=== PATIENT | female | born 1955 | race Caucasian/White ===

== ENCOUNTER → 2017-03-01 | Outpatient (CLI) | payer OTHER | LOC: FIMAGING 14:36 | PROVIDERS: ATTEND Internal Medicine | DX: Z13.820 Encounter for screening for osteoporosis (principal); M85.80 Other specified disorders of bone density and structure, unspecified site ==

== ENCOUNTER 2017-12-13 13:45 | Emergency (ER) | payer OTHER ==
[2017-12-13 13:59] VITALS: PULSE 72; TEMP 97.7
--- NOTE | 2017-12-13 14:01 | CPEKG ---
Heart Rate: 65 RR Interval: 923 P-R Interval: 160 QRSD Interval: 88 QT Interval: 424 QTC Interval: 441 P [place]: 63 QRS [place]: 29 T Wave [place]: 66 EKG Severity - NORMAL ECG - EKG Impression: SINUS RHYTHM Electronically Signed By: Harman Funk 13-Dec-2017 14:09:01
[2017-12-13 14:16] LABS: PLATELET COUNT 233 10^3/uL (150-400)
--- NOTE | 2017-12-13 14:26 | EDPHY ---
H & P Time Seen by Provider: 12/13/17 14:10 HPI/ROS: Chief complaint. Left arm tingling HPI. 62-year-old female presents with tingling in altered sensation to the left arm that she noticed began at about 11:00 a.m. today. She arrives by EMS. She was checking her e-mail and noticed that she had altered sensation in the left hand and fingers. There was no weakness. She could hold onto her phone without difficulty. She was up at [facility]. She had been skiing but decided she did likely conditions and quit. There was no injury. She was slightly lightheaded. She does not have a headache. No change in her vision. She noticed some rapid heart rate there was unaware of the rate. She had no chest discomfort or shortness of breath. No abdominal pain she has no left lower extremity symptoms. She did have some left neck pain in the ambulance on the way down. ROS Constitutional. no fever/chills, no weakness Eyes. no problems with vision ENT. no sore throat, no nasal drainage. Left neck pain that has resolved Cardiovascular. no chest pain Respiratory. no shortness of breath, no cough Abdominal. no abdominal pain, no nausea/vomiting, no diarrhea . no problems urinating MS. no calf pain/swelling, no neck/back pain, no joint pain Skin. no rash Lymph. no swollen glands Neuro. Altered sensation to left hand and forearm Past Medical/Surgical History: Migraines, hypothyroid, hypoglycemia, anxiety, hysterectomy Social History: , nonsmoker, no alcohol Smoking Status: Never smoked Physical Exam: General Appearance: Alert well-developed female mild distress vital signs are stable Eyes: Pupils equal and round no pallor or injection. ENT, Mouth: Mucous membranes are moist. Respiratory: There are no retractions, lungs are clear to auscultation. Cardiovascular: Regular rate and rhythm. Gastrointestinal: Abdomen is soft and nontender, no masses, bowel sounds normal. Neurological: Awake and alert, sensory and motor exams grossly normal. Speech is normal. Cranial nerves are normal the. There is no pronator drift. Finger- to-nose is intact bilaterally. Subjective sensation of decreased a sensation in the left hand. [id number] normal. Skin: Warm and dry, no rashes. Musculoskeletal: Neck is supple nontender. Extremities symmetrical, full range of motion. Pulses upper extremities are similar both arms Psychiatric: Patient is oriented X 3, there is no agitation. Constitutional: Initial Vital Signs Temperature (C) 36.5 C 12/13/17 13:57 Heart Rate 72 12/13/17 13:57 Respiratory Rate 16 12/13/17 13:57 Blood Pressure 135/87 H 12/13/17 13:57 O2 Sat (%) 92 12/13/17 13:57 O2 Delivery Mode Room Air Allergies/Adverse Reactions: midazolam [From Versed] Allergy (Verified 12/13/17 13:56) tramadol Allergy (Verified 12/13/17 13:56) Home Medications: Medication Instructions Recorded IMITREX 12/13/17 Levothyroxine 12/13/17 Medical Decision Making - Diagnostics EKG Interpretation: EKG reviewed by me shows normal sinus rhythm without arrhythmia Imaging Results: Imaging Impressions Brain MRI 12/13/17 14:54 Impression: Small focus of susceptibility artifact within the right temporal lobe suspicious for prior microhemorrhage potentially related to trauma. No acute abnormality identified. Specifically, no evidence of acute cortical ischemia. Results called to Dr. Harman Funk at 4:25 PM. Neck MRA 12/13/17 14:55 Impression: MRA of the cervical carotids and vertebrals demonstrate no evidence of flow-limiting stenosis, occlusion, or dissection. Results called to Dr. Funk at 4:40 PM. Measurements of carotid stenosis are based on the residual internal carotid diameter with [place] Symptomatic Carotid Endarterectomy Trial (NASCET) based stenosis levels. Brain MRI reviewed by me shows no evidence of acute CVA. There is remote evidence of a small parenchymal hemorrhage. Reviewed by me and discussed with Dr. Madrid MRA neck shows no evidence of vertebral or carotid artery dissection. Again reviewed by me and discussed with Dr. Madrid Procedures: IV normal saline ED Course/Re-evaluation: Consulted and discussed the case with Dr. Joyner, neurology who recommends MRI head without contrast and then MRA of the neck looking for dissection. Re-evaluation at 5:00 p.m.. Patient is stable. She, her , and I discussed imaging and lab results. We discussed treatment plan including criteria for return and recommendation for daily aspirin. Follow up with Neurology. Patient has a neurologist in [place] Phone consult called to patient's neurologist Dr. Teresa Vazquez--[phone], . Dr. Vazquez called me back and agrees with treatment and will see the patient in the office tomorrow and continue workup Aspirin given in the emergency department Differential Diagnosis: I considered CVA, TIA, intracranial bleeding, migraine, stress anxiety, carotid and vertebral artery dissection - Data Points Laboratory Results: Laboratory Results 12/13/17 14:05 12/13/17 14:05 12/13/17 12/13/17 12/13/17 14:05 14:05 14:05 WBC 6.63 10^3/uL 10^3/uL (3.80-9.50) RBC 4.34 10^6/uL 10^6/uL (4.18-5.33) Hgb 13.4 g/dL g/dL (12.6-16.3) Hct 39.0 % % (38.0-47.0) MCV 89.9 fL fL (81.5-99.8) MCH 30.9 pg pg (27.9-34.1) MCHC 34.4 g/dL g/dL (32.4-36.7) RDW 13.1 % % (11.5-15.2) Plt Count 233 10^3/uL 10^3/uL (150-400) MPV 9.7 fL fL (8.7-11.7) Neut % (Auto) 71.7 % % (39.3-74.2) Lymph % (Auto) 20.8 % % (15.0-45.0) [place] % (Auto) 5.9 % % (4.5-13.0) Eos % (Auto) 0.5 % L % (0.6-7.6) Baso % (Auto) 0.8 % % (0.3-1.7) Nucleat RBC Rel Count 0.0 % % (0.0-0.2) Absolute Neuts (auto) 4.76 10^3/uL 10^3/uL (1.70-6.50) Absolute Lymphs (auto) 1.38 10^3/uL 10^3/uL (1.00-3.00) Absolute Monos (auto) 0.39 10^3/uL 10^3/uL (0.30-0.80) Absolute Eos (auto) 0.03 10^3/uL 10^3/uL (0.03-0.40) Absolute Basos (auto) 0.05 10^3/uL 10^3/uL (0.02-0.10) Absolute Nucleated RBC 0.00 10^3/uL 10^3/uL (0-0.01) Immature Gran % 0.3 % % (0.0-1.1) Immature Gran # 0.02 10^3/uL 10^3/uL (0.00-0.10) PT 13.3 SEC SEC (12.0-15.0) INR 0.99 (0.83-1.16) Sodium 144 mEq/L mEq/L (135-145) Potassium 3.7 mEq/L mEq/L (3.5-5.2) Chloride 105 mEq/L mEq/L (97-110) Carbon Dioxide 27 mEq/l mEq/l (22-31) Anion Gap 12 mEq/L mEq/L (8-16) BUN 19 mg/dL mg/dL (7-23) Creatinine 1.0 mg/dL mg/dL (0.6-1.0) Estimated GFR 56 Glucose 90 mg/dL mg/dL (70-100) Calcium 9.8 mg/dL mg/dL (8.5-10.4) Troponin I < 0.012 ng/mL ng/mL (0.000-0.034) Medications Given: Discontinued Medications Sodium Chloride (Ns) 1,000 mls @ 0 mls/hr IV ONCE ONE; Wide Open PRN Reason: Protocol Stop: 12/13/17 14:55 Last Admin: 12/13/17 15:30 Dose: Not Given Departure - Departure Disposition: Home, Routine, Self-Care Clinical Impression: Paresthesia Condition: Good Instructions: Paresthesia (ED) Additional Instructions: Activity as tolerated. Continue regular medications. Aspirin [address] Peterson tomorrow for follow-up and further evaluation without fail. Return tonight for worsening symptoms Referrals: Patient,NotPresent [Unknown] - As per Instructions
[2017-12-13 15:08] LABS: INR 0.99 (0.83-1.16); PROTIME(PATIENT) 13.3 SEC (12.0-15.0)
[2017-12-13] MEDS: NS 1,000 ML IV ONE ×2 (15:30→17:00)
[2017-12-13] MEDS ORDERED: GADOBUTROL 10 ML VIAL IVP ONE (15:34)
[2017-12-13] MEDS ORDERED: ASPIRIN 81 MG CHEWABLE TAB PO ONE (17:09)
[2017-12-13 17:42] VITALS: BP 115/64; RESP 18; O2SAT 95
== END 2017-12-13 17:56 | disposition home or self-care (01) ==
LOC: EDUNIT#
DX: R20.2 Paresthesia of skin (principal); E86.9 Volume depletion, unspecified
CPT/HCPCS: A9585

== ENCOUNTER → 2018-01-21 | Outpatient (CLI) | payer OTHER | LOC: FIMAGING 14:20 | PROVIDERS: ATTEND Psychiatry & Neurology Neurology | DX: G43.009 Migraine without aura, not intractable, without status migrainosus (principal); R20.0 Anesthesia of skin ==

== ENCOUNTER → 2019-04-07 | Outpatient (CLI) | payer OTHER | LOC: FIMAGING 14:46 | PROVIDERS: ATTEND Internal Medicine | DX: Z12.31 Encounter for screening mammogram for malignant neoplasm of breast (principal) ==